=== PATIENT | female | born 1985 | race Caucasian/White ===

== ENCOUNTER 2017-03-29 16:56 | Emergency (ER) | payer OTHER ==
[~2017-03-29] VITALS: Ht 162.6 cm; Wt 76.0 kg
[2017-03-29 17:00] VITALS: Ht 162.6 cm; Wt 76.0 kg
--- NOTE | 2017-03-29 17:26 | ERD ---
ER Documentation Chief Complaint Date/Time DATE: 03/29/17 TIME: 17:23 Chief Complaint NEEDS TEST, LMP 12/10/16, FATIGUE AND DIZZINESS HPI 31-year-old female who presents emergency room with secondary amenorrhea since December 10, 2016. She states that she is usually regular. Over this timeframe she has had several negative hCG test at home. Patient had recent blood testing that showed no anemia, normal FSH and prolactin levels. The patient does describe some lower abdominal bloating and cramping. The patient is requesting a blood test. She denies any weight loss but does describe some generalized fatigue. ROS All systems reviewed and are negative except as per history of present illness. Medications Home Meds No Active Prescriptions or Reported Meds Allergies Allergies: Coded Allergies: No Known Drug Allergies (Verified Allergy, 11/19/12) PMhx/Soc History of Surgery: No Anesthesia Reaction: No Hx Neurological Disorder: No Hx Respiratory Disorders: No Hx Cardiac Disorders: No Hx Psychiatric Problems: No Hx Miscellaneous Medical Probl: No FmHx Family History: No diabetes Physical Exam Vitals Vital Signs Date Time Temp Pulse Resp B/P Pulse Ox O2 Delivery O2 Flow Rate FiO2 03/29/17 17:00 99.1 115 20 113/71 98 Physical Exam General: Well developed, well nourished, no acute distress Head: Normocephalic, atraumatic. Eyes: Pupils equally reactive, EOM intact ENT: Moist mucous membranes Neck: Supple, no lymphadenopathy Respiratory: No respiratory distress Cardiovascular: Good capillary refill Abdominal: Soft, mild fullness to the suprapubic region without focal tenderness : Deferred MSK: No edema, no unilateral swelling, 5/5 strength Neurologic: Alert and oriented, moving all extremities, normal speech, no focal weakness, no cerebellar signs Skin: No rash Psych: Normal mood Results 24 hrs Laboratory Tests Test 03/29/17 17:20 Beta HCG, Quantitative < 2.4mIU/ml Procedures/MDM EKG, MONITORS, & DIAGNOSTIC IMAGING: Pelvic ultrasound: IMPRESSION: Development of a large 9.7 x 6.7 x 11.5 cm fat-containing anterior midline ventral hernia (pictured below) without evidence of associated bowel involvement or obstruction. A small amount of fluid is present within the hernia sac. RPTAT: QQ LAB INTERPRETATION: HCG quant: < 2, negative MEDICAL DECISION MAKING: The patient presents to the emergency room with secondary amenorrhea, lower abdominal bloating and fullness. A broad differential exists, less likely consistent with given multiple negative tests at home. I reviewed patient's recent blood testing over the past week that shows no evidence of anemia, normal FSH and prolactin levels. Unclear etiology, consider anovulatory cycle, ovarian cyst among others. Patient will likely require outpatient [facility] follow-up for further testing, diagnostic imaging. At this time I believe a pelvic ultrasound would be reasonable. Less likely a consideration for malignancy though not impossible again outpatient follow-up and imaging appropriate. Referral information to [facility] clinics will be provided. ER COURSE: The patient's test is negative. Ultrasound is unrevealing. At this time the patient can be safely referred to [facility] for further testing. Again, low concern for malignancy. No indication for imaging. Return precautions discussed. I kept the patient and/or family informed of laboratory and diagnostic imaging results throughout the emergency room course. DISPOSITION PLAN: We discussed follow up with the patient's primary care doctor within 24 to 48 hours as needed. We also discussed return to the emergency room for worsening symptoms or worsening condition. Outpatient referral: [facility] Departure Diagnosis: Primary Impression: Secondary amenorrhea Condition: APRIL Jacques MD Mar 29, 2017 17:25
--- NOTE | 2017-03-29 18:06 | RADRPT ---
PROCEDURE: US Pelvis. CLINICAL INDICATION: Pelvic pain TECHNIQUE: Multiple sonographic images of the pelvis were obtained utilizing a transabdominal and endovaginal technique. The images were reviewed on a PACS workstation. COMPARISON: None. FINDINGS: The uterus is visualized and measures 9.0 x 3.9 x 5.0 cm. The endometrial echo complex measures 9.0 mm thickness. Nabothian cysts are seen in the cervix. The largest measures up to 1.8 cm. No uterine masses are identified. The right ovary measures 3.6 x 2.7 x 2.7 cm . The left ovary measures 3.4 x 2.5 x 2.7 cm. Multiple follicles are seen on both ovaries. The ovaries demonstrate normal vascularity. No adnexal masses or pelvic free fluid are noted. IMPRESSION: Nabothian cysts in the cervix. Otherwise, unremarkable exam. If further characterization of the organs of the pelvis is needed MRI should be considered. RPTAT: AA .Hilario Nelson MD, MD Date Time Electronically viewed and signed by .Hilario Nelson MD, on 03/29/2017 18:06 .P/
[2017-03-29 18:54] VITALS: BP 117/84; PULSE 78; RESP 20; TEMP 99.1
== END 2017-03-29 18:56 | disposition home or self-care (01) ==
LOC: FTE 16:56
DX: N91.1 Secondary amenorrhea (principal); R10.2 Pelvic and perineal pain
CPT/HCPCS: 36415; 76830; 76856; 84702

== ENCOUNTER 2018-03-04 22:19 | Emergency (ER) | END 2018-03-05 00:10 | disposition home or self-care (01) ==